=== PATIENT | male | born 1985 | race African-American/Black ===

== ENCOUNTER 2016-09-23 08:03 | Emergency (ER) | payer MEDICAID ==
[2016-09-23] MEDS ORDERED: LIDOCAINE 5% (700 MG) TRANSDERMAL ADH..PATCH TP ONE (09:56)
[2016-09-23] MEDS ORDERED: HYDROCODONE/ACETAMINOPHEN 5-325 MG 6 TAB/DSPK PO PRN (09:56)
[2016-09-23] MEDS ORDERED: KETOROLAC TROMETHAMINE 60 MG/2 ML SDV IM ONE (09:56)
[2016-09-23] MEDS ORDERED: PREDNISONE 20 MG TABLET PO ONE (10:01)
--- NOTE | 2016-09-23 10:01 | ER Document Report ---
ED General - General Chief Complaint: Low Back Pain Stated Complaint: BACK INJURY TRAVEL OUTSIDE OF THE [place] IN LAST 30 DAYS: No - HPI Patient complains to provider of: low back pain Notes: Patient was performing any lifting started having low back pain. Days later coming in for further evaluation. Patient denies any numbness tingling bowel or bladder incontinence. Denies fevers chills denies IV drug use. Patient states pain starts in his buttocks and radiates down his leg. Denies fevers chills trauma - Related Data Allergies/Adverse Reactions: No Known Allergies Allergy (Unverified 09/23/16 08:56) Past Medical History - Social History Smoking Status: Never Smoker Chew tobacco use (# tins/day): No Frequency of alcohol use: None Drug Abuse: None Family History: None Patient has suicidal ideation: No Patient has homicidal ideation: No - Past Medical History Cardiac Medical History: Reports: Hx Hypertension Renal/ Medical History: Denies: Hx Peritoneal Dialysis Past Surgical History: Reports: Hx Oral Surgery - Immunizations Hx Diphtheria, Pertussis, Tetanus Vaccination: Yes Review of Systems - Review of Systems Constitutional: No symptoms reported EENT: No symptoms reported Cardiovascular: No symptoms reported Respiratory: No symptoms reported Gastrointestinal: No symptoms reported Genitourinary: No symptoms reported Male Genitourinary: No symptoms reported Musculoskeletal: Back pain Skin: No symptoms reported Hematologic/Lymphatic: No symptoms reported Neurological/Psychological: No symptoms reported -: Yes All other systems reviewed and negative Physical Exam - Vital signs Vitals: Temp Pulse Resp BP Pulse Ox 98.3 F 80 16 152/90 H 97 09/23/16 08:17 09/23/16 08:17 09/23/16 08:17 09/23/16 08:17 09/23/16 08:17 Interpretation: Normal - General General appearance: Appears well, Alert - HEENT Head: Normocephalic, Atraumatic Eyes: Normal Pupils: PERRL - Respiratory Respiratory status: No respiratory distress Chest status: Nontender Breath sounds: Normal Chest palpation: Normal - Cardiovascular Rhythm: Regular Heart sounds: Normal auscultation Murmur: No - Abdominal Inspection: Normal Distension: No distension Bowel sounds: Normal Tenderness: Nontender Organomegaly: No organomegaly - Back Back: Normal, Nontender, Other - Patient symptoms are reproduced when standing and palpating the piriformis muscle of the right side sharp pain radiating on patient's leg - Extremities General upper extremity: Normal inspection, Nontender, Normal color, Normal ROM , Normal temperature General lower extremity: Normal inspection, Nontender, Normal color, Normal ROM , Normal temperature, Normal weight bearing. No: Peter's sign - Neurological Neuro grossly intact: Yes Cognition: Normal Orientation: AAOx4 [place] Coma Scale Eye Opening: Spontaneous [place] Coma Scale Verbal: Oriented Eric Coma Scale Motor: Obeys Commands Eric Coma Scale Total: 15 Speech: Normal Motor strength normal: LUE, RUE, LLE, RLE Sensory: Normal - Psychological Associated symptoms: Normal affect, Normal mood - Skin Skin Temperature: Warm Skin Moisture: Dry Skin Color: Normal Course - Re-evaluation Re-evalutation: 09/23/16 15:32 The patient presents with low back pain without signs of spinal cord compression , cauda equina syndrome, infection, aneurysm, or other serious etiology. The patient is neurologically intact. Given the extremely low risk of these diagnoses further testing and evaluation for these possibilities does not appear to be indicated at this time. The patient has been instructed to return if the symptoms worsen or change in any way. .. - Vital Signs Vital signs: Temp Pulse Resp BP Pulse Ox 97.7 F 74 18 146/88 H 99 09/23/16 10:31 09/23/16 10:31 09/23/16 10:31 09/23/16 10:31 09/23/16 10:31 Discharge - Discharge Clinical Impression: Back pain Qualifiers: Back pain location: low back pain Chronicity: unspecified Back pain laterality : unspecified Sciatica presence: with sciatica Sciatica laterality: sciatica laterality unspecified Qualified Code(s): M54.40 - Lumbago with sciatica, unspecified side Sciatica Qualifiers: Laterality: unspecified laterality Qualified Code(s): M54.30 - Sciatica, unspecified side Condition: Good Disposition: HOME, SELF-CARE Instructions: Ice Packs ([facility]), Low Back Pain ([facility]), Warm Packs ([facility]), Oral Narcotic Medication ([facility]), Sciatica ([facility]), Stretching Exercises for the Back ( [facility]) Additional Instructions: Take medication as prescribed. Return to ER symptoms worsen. Follow-up with your primary care physician. Prescriptions: Ibuprofen [Motrin 600 mg Tablet] 600 mg PO Q8HP PRN #30 tablet PRN Reason: Hydrocodone Bit/Acetaminophen [Hydrocodon-Acetaminophen 5-325] 1 each PO Q6 #20 tablet Prednisone [Deltasone 20 mg Tablet] 60 mg PO DAILY 5 Days Forms: Return to Work Referrals: PREMA OLSEN MD [Primary Care Provider] - Follow up as needed
[2016-09-23 10:42] VITALS: BP 146/88
== END 2016-09-23 10:42 | disposition home or self-care (01) ==
LOC: ER 08:03
DX: M54.40 Lumbago with sciatica, unspecified side (principal); M54.30 Sciatica, unspecified side; I10 Essential (primary) hypertension
CPT/HCPCS: 99283; 96372; J1885; J3490; J7512

== ENCOUNTER 2018-04-24 17:29 | Emergency (ER) | payer SELFPAY ==
[2018-04-24 17:59] VITALS: BP 152/92
[2018-04-24] MEDS ORDERED: DEXAMETHASONE SOD PHOS INJ 10 MG/1 ML VIAL IM ONE (18:11)
[2018-04-24] MEDS ORDERED: KETOROLAC TROMETHAMINE 60 MG/2 ML SDV IM ONE (18:11)
--- NOTE | 2018-04-24 18:14 | ER Document Report ---
ED Neck/Back Problem - General Chief Complaint: Back Pain Stated Complaint: BACK PAIN Time Seen by Provider: 04/24/18 17:56 Mode of Arrival: Ambulatory Information source: Patient Notes: 32-year-old male presented ED for complaint of pain to his lower back for years. He states his been hurting worse for the last couple days. He denies any trauma or any injuries to his back. He states he has had sciatica multiple times in the past. He states he does a lot of lifting at work and was doing some stretching and the pain has continued. Patient is alert and oriented respirations regular and unlabored speaking in full sentences walks with a even steady gait. TRAVEL OUTSIDE OF THE [place] IN LAST 30 DAYS: No - HPI Patient complains to provider of: Pain, Lower back Onset: Last week Onset: Chronic Timing: Still present Quality of pain: Sharp Severity: Moderate Pain Level: 3 Recent injury: No Associated symptoms: Like prior neck/back pain, Lower back pain. denies: Incontinence, Motor loss, Numbness/tingling, Radiation to arm, Radiation to chest, Radiation to leg, Sensory loss, Sweaty, Unable to urinate, Upper back pain Exacerbated by: Movement of trunk Relieved by: Nothing Similar symptoms previously: Yes Recently seen / treated by doctor: No - Related Data Allergies/Adverse Reactions: No Known Allergies Allergy (Unverified 09/23/16 08:56) Past Medical History - General Information source: Patient - Social History Smoking Status: Never Smoker Cigarette use (# per day): No Chew tobacco use (# tins/day): No Smoking Education Provided: No Frequency of alcohol use: Occasional Drug Abuse: None 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 History: None Patient has suicidal ideation: Yes Patient has homicidal ideation: Yes - Past Medical History Cardiac Medical History: Reports: Hx Hypertension Pulmonary Medical History: Reports: None EENT Medical History: Reports: None Neurological Medical History: Reports: None Endocrine Medical History: Reports: None Renal/ Medical History: Reports: None Malignancy Medical History: Reports None GI Medical History: Reports: None Musculoskeletal Medical History: Reports None Skin Medical History: Reports None Psychiatric Medical History: Reports: None Traumatic Medical History: Reports: None Infectious Medical History: Reports: None Past Surgical History: Reports: Hx Oral Surgery - Immunizations Immunizations up to date: Yes Hx Diphtheria, Pertussis, Tetanus Vaccination: Yes Review of Systems - Review of Systems Constitutional: No symptoms reported EENT: No symptoms reported Cardiovascular: No symptoms reported Respiratory: No symptoms reported Gastrointestinal: No symptoms reported Genitourinary: No symptoms reported Male Genitourinary: No symptoms reported Musculoskeletal: Back pain, Muscle pain, Muscle stiffness Skin: No symptoms reported Hematologic/Lymphatic: No symptoms reported Neurological/Psychological: No symptoms reported -: Yes All other systems reviewed and negative Physical Exam - Vital signs Vitals: Temp Pulse Resp BP Pulse Ox 98.2 F 55 L 18 157/103 H 100 04/24/18 17:53 04/24/18 17:53 04/24/18 17:53 04/24/18 17:53 04/24/18 17:53 Interpretation: Normal - General General appearance: Appears well, Alert - HEENT Head: Normocephalic, Atraumatic Eyes: Normal Pupils: PERRL - Respiratory Respiratory status: No respiratory distress Chest status: Nontender Breath sounds: Normal Chest palpation: Normal - Cardiovascular Rhythm: Regular Heart sounds: Normal auscultation Murmur: No - Abdominal Inspection: Normal Distension: No distension Bowel sounds: Normal Tenderness: Nontender Organomegaly: No organomegaly - Back Back: Normal, Tender. No: Deformity/step-off, CVA tenderness, Vertebra tenderness, Scars, Scoliosis, Wounds Notes: No signs or symptoms of cauda equina, no loss of control of bowel bladder, no loss of sensation to the legs no loss control to the lower extremities, no saddle anesthesia. - Extremities General upper extremity: Normal inspection, Nontender, Normal color, Normal ROM , Normal temperature General lower extremity: Normal inspection, Nontender, Normal color, Normal ROM , Normal temperature, Normal weight bearing. No: Peter's sign - Neurological Neuro grossly intact: Yes Cognition: Normal Orientation: AAOx4 [place] Coma Scale Eye Opening: Spontaneous Eric Coma Scale Verbal: Oriented Eric Coma Scale Motor: Obeys Commands [place] Coma Scale Total: 15 Speech: Normal Motor strength normal: LUE, RUE, LLE, RLE Sensory: Normal - Psychological Associated symptoms: Normal affect, Normal mood - Skin Skin Temperature: Warm Skin Moisture: Dry Skin Color: Normal Course - Re-evaluation Re-evalutation: 04/24/18 21:26 Patient was treated with Toradol and Decadron. Patient was given instructions on ice warm packs and stretching exercises. Patient instructed to follow-up with his primary doctor and a back specialist if he continues to have pain. - Vital Signs Vital signs: Temp Pulse Resp BP Pulse Ox 98.2 F 55 L 18 152/92 H 100 04/24/18 17:53 04/24/18 17:53 04/24/18 17:53 04/24/18 17:58 04/24/18 17:53 Discharge - Discharge Clinical Impression: Chronic low back pain Qualifiers: Back pain laterality: bilateral Sciatica presence: without sciatica Qualified Code(s): M54.5 - Low back pain Condition: Stable Disposition: HOME, SELF-CARE Additional Instructions: Chronic Back Pain Chronic back pain (pain persisting longer than three months) is a common problem. A medical evaluation can look for herniated disc, arthritis, osteoporosis, tumors, and infections. But at least half the time, there's no obvious treatable cause. Anxiety and depression tend to worsen back pain. Ibuprofen or other anti-inflammatory medicine can help. A heating pad, used for 15-20 minutes at a time, can ease pain. For this type of back pain, narcotic medicines should be avoided. Muscle relaxers are rarely helpful unless you're having spasms. Activity is important. Find an aerobic exercise program that your back can tolerate. Too much rest makes back pain worse. Specific back exercises are usually prescribed to strengthen the back and abdominal muscles. Often, a physical therapist can help. Avoid heavy lifting, working while bent over, or standing with both knees straight. Most back pain patients do better with a firm mattress. If new symptoms of a "herniated disc" (radiation of pain, numbness, or tingling down the back of the leg or weakness in the leg) occur, you should be re-examined. MUSCLE RELAXERS: Muscle relaxing medications are usually prescribed for acute muscle spasm or injury to the neck and back. They are often combined with antiinflammatory pain medication for increased relief. You may stop the muscle relaxer when the pain and stiffness have improved. Start the medication again if spasms recur. Muscle relaxers may cause drowsiness, especially with the first dose. Do not operate machinery or drive while under the effects of the medication. Most muscle relaxers last up to 24 hours. Do not combine the medication with alcohol. ICE PACKS: Apply ice packs frequently against the painful area. Many different schedules are recommended, such as "20 minutes on, 20 minutes off" or "one hour ice, two hours rest." If you need to work, you may need to go longer between ice treatments. You should plan to have the area ice packed AT LEAST one fourth of the time. The ice should be applied over the wrap, tape, or splint, or over a layer of cloth -- not directly against the skin. Some ice bags have a built-in cloth and can be put directly on the skin. WARM PACKS: After approximately two days, apply gentle heat (such as a heating pad or hot water bottle) for about 20 to 30 minutes about every two hours -- at least four times daily. Warmth and elevation will help you make a more rapid recovery , and will ease the pain considerably. Do not use HOT heat, and never apply heat for longer than 30 minutes. The continuous heat can invisibly damage skin and muscles -- even when no burn is seen on the surface. Damaged muscles can make you MORE sore. Stretching Exercises for the Back The physician has recommended that you begin stretching exercises for your back. These are often used even while the back is painful. However, you should notify the physician if the activities seem to increase your pain. PELVIC TILT: Lie flat on your back with knees bent. Tighten your stomach and buttock muscles so it flattens your lower back against the floor. Hold 10 seconds. Repeat 10 times, twice daily. KNEE RAISE: Lying on the back with knees bent, raise one knee to your chest, then the other. Hold both knees against the chest 10 seconds, then lower one knee at a time. Repeat 10 times, twice daily. PARTIAL TRUNK RAISE: Lie face down, arms at your sides. Keeping your waist on the floor, use your arms raise your chest up. Support yourself on your elbows for 30 seconds. Repeat twice daily, increasing the time to two minutes as you recover. STEROID MEDICATION: You have been given an injection of medicine of the cortisone/steroid class. This medication is used to control inflammation or allergy. It is often continued as a pill for a short period of time, until the acute process subsides. There are usually no side effects from short-term use of cortisone-like medications. Some persons feel an increased sense of well-being and are not sleepy at bedtime. Long-term use of cortisone medications is best avoided, unless required for a severe condition. If your condition does not remit, or relapses after the course of corticosteroid medication, you should consult your physician. Toradol Injection You have been given an injection of ketorolac tromethamine (Toradol). This is an excellent, safe drug for pain control. It also has potent antiinflammatory action. You should have significant pain relief within about one hour. Toradol is not addicting and is non-sedating. It does not interfere with driving or work. Call or return if you develop itching, hives, shortness of breath, or rash. FOLLOW-UP CARE: If you have been referred to a physician for follow-up care, call the physician s office for an appointment as you were instructed or within the next two days. If you experience worsening or a significant change in your symptoms, notify the physician immediately or return to the Emergency Department at any time for re-evaluation. Prescriptions: Cyclobenzaprine HCl [Flexeril 10 mg Tablet] 10 mg PO TIDP PRN #15 tab PRN Reason: Forms: Elevated Blood Pressure, Return to Work Referrals: PREMA OLSEN MD [NO LOCAL MD] - Follow up in 3-5 days
== END 2018-04-24 18:40 | disposition home or self-care (01) ==
LOC: ER 17:29
DX: G89.29 Other chronic pain (principal); M54.5 Low back pain; I10 Essential (primary) hypertension
CPT/HCPCS: 99283; 96372; J1885; J1100

== ENCOUNTER 2018-12-23 19:54 | Emergency (ER) | payer OTHER ==
[2018-12-23 22:15] VITALS: BP 147/101
[2018-12-23] MEDS ORDERED: DIPHENHYDRAMINE HCL 50 MG CAPSULE PO ONE (22:15)
[2018-12-23] MEDS ORDERED: IBUPROFEN 600 MG TABLET PO ONE (22:15)
--- NOTE | 2018-12-23 22:20 | ER Document Report ---
ED Skin Rash/Insect Bite/Abscs - General Chief Complaint: Bee Sting Stated Complaint: WASP STING, LEFT EYE SWOLLEN Time Seen by Provider: 12/23/18 21:21 Mode of Arrival: Ambulatory Information source: Patient Notes: 33-year-old male presented to ED for a wasp sting to the forehead this afternoon. He states that the swelling is now gone down to his left eyelid. He denies any pain shortness of breath difficulty swallowing or difficulty breathing. He is alert oriented respirations regular and unlabored speaking in full sentences walks with even steady gait. He is in no acute distress. He states he was just concerned because he has some swelling to the eyelid on the side that he was stung on. He states he used an alcohol pad at the time of the staying. He states he is not taking any ibuprofen or Benadryl as yet. He will be treated with both while in the emergency room. TRAVEL OUTSIDE OF THE [place] IN LAST 30 DAYS: No - HPI Patient complains to provider of: Insect sting Onset: This afternoon Onset/Duration: Gradual Quality of pain: No pain Severity: None Pain Level: Denies Skin Character: Swelling - Left eyelid due to bee sting Identify cause: Yes Exacerbated by: Denies Relieved by: Denies Similar symptoms previously: Yes Recently seen / treated by doctor: No - Related Data Allergies/Adverse Reactions: No Known Allergies Allergy (Verified 12/23/18 20:02) Past Medical History - General Information source: Patient - Social History Smoking Status: Never Smoker Chew tobacco use (# tins/day): No Frequency of alcohol use: None Drug Abuse: None Lives with: Family Family History: None Patient has suicidal ideation: No Patient has homicidal ideation: No - Past Medical History Cardiac Medical History: Reports: Hx Hypertension Pulmonary Medical History: Reports: None EENT Medical History: Reports: None Neurological Medical History: Reports: None Endocrine Medical History: Reports: None Renal/ Medical History: Reports: None Malignancy Medical History: Reports None GI Medical History: Reports: None Musculoskeletal Medical History: Reports None Skin Medical History: Reports None Psychiatric Medical History: Reports: None Traumatic Medical History: Reports: None Infectious Medical History: Reports: None Past Surgical History: Reports: Hx Oral Surgery, Other - PRK to eyes - Immunizations Immunizations up to date: Yes Hx Diphtheria, Pertussis, Tetanus Vaccination: Yes Review of Systems - Review of Systems Constitutional: No symptoms reported EENT: Other - Mild swelling to forehead and left upper eyelid eyes pain Cardiovascular: No symptoms reported Respiratory: No symptoms reported Gastrointestinal: No symptoms reported Genitourinary: No symptoms reported Male Genitourinary: No symptoms reported Musculoskeletal: No symptoms reported Skin: No symptoms reported Hematologic/Lymphatic: No symptoms reported Neurological/Psychological: No symptoms reported -: Yes All other systems reviewed and negative Physical Exam - Vital signs Vitals: Temp Pulse Resp BP Pulse Ox 97.8 F 74 15 145/106 H 100 12/23/18 20:16 12/23/18 20:16 12/23/18 20:16 12/23/18 20:16 12/23/18 20:16 Interpretation: Normal - General General appearance: Appears well, Alert - HEENT Head: Atraumatic, Other - Mild swelling to forehead and left upper eyelid from bee sting Eyes: Other - Mild swelling to left upper eyelid from bee sting Conjunctiva: Normal Cornea: Normal Pupils: PERRL Ears: Normal External canal: Normal Tympanic membrane: Normal Sinus: Normal Nasal: Normal Mouth/Lips: Normal Mucous membranes: Normal Pharynx: Normal Neck: Normal - Respiratory Respiratory status: No respiratory distress Chest status: Nontender Breath sounds: Normal Chest palpation: Normal - Cardiovascular Rhythm: Regular Heart sounds: Normal auscultation Murmur: No - Abdominal Inspection: Normal Distension: No distension Bowel sounds: Normal Tenderness: Nontender Organomegaly: No organomegaly - Back Back: Normal, Nontender - Extremities General upper extremity: Normal inspection, Nontender, Normal color, Normal ROM, Normal temperature General lower extremity: Normal inspection, Nontender, Normal color, Normal ROM, Normal temperature, Normal weight bearing. No: Peter's sign - Neurological Neuro grossly intact: Yes Cognition: Normal Orientation: AAOx4 Eric Coma Scale Eye Opening: Spontaneous [place] Coma Scale Verbal: Oriented Eric Coma Scale Motor: Obeys Commands [place] Coma Scale Total: 15 Speech: Normal Motor strength normal: LUE, RUE, LLE, RLE Sensory: Normal - Psychological Associated symptoms: Normal affect, Normal mood - Skin Skin Temperature: Warm Skin Moisture: Dry Skin Color: Normal Course - Re-evaluation Re-evalutation: 12/23/18 22:22 Patient was treated with ibuprofen and Benadryl in the emergency room. Patient was instructed that he needs to follow-up with [facility] for his high blood pressure. was at bedside stated she would ensure that he follows up with his primary care provider for his blood pressure. Patient states he will use ibuprofen and Benadryl at home after he gets a dose in the emergency room. is going to drive home. - Vital Signs Vital signs: Temp Pulse Resp BP Pulse Ox 97.8 F 69 18 147/101 H 98 12/23/18 22:13 12/23/18 22:13 12/23/18 22:13 12/23/18 22:13 12/23/18 22:13 Discharge - Discharge Clinical Impression: Local reaction to bee sting Qualifiers: Encounter type: initial encounter Injury intent: accidental or unintentional Qualified Code(s): T63.441A - Toxic effect of venom of bees, accidental (unintentional), initial encounter Condition: Stable Disposition: HOME, SELF-CARE Additional Instructions: Insect Sting You've been stung by an insect. The venom can cause pain, redness, and swelling. Right after the sting, we sometimes use adrenaline to reduce the reaction to the venom. This also stops any allergic reaction. You should apply cold compresses, rest and elevate the affected part, and take antihistamines. A more severe, itchy red swelling sometimes develops the next day. This is a local allergic reaction to the venom. This local allergy isn't dangerous. We treat it with cortisone-type medicine and antihistamines. Sometimes we use antibiotics if we're worried about infection. If you develop a fever, chills, a red streak, or swollen glands in the area of the bite, infection may be starting. Return at once. Insect stings from the bee and hornet family may cause a severe allergic reaction. Symptoms include hoarseness, shortness of breath, general redness of the skin, general itching, or lightheadedness. If any of these symptoms occur, you'll be treated with adrenalin and cortisone-like steroids. You should carry an "Anaphylaxis Kit" with you in the summer months so you can administer these medications to yourself before getting emergency medical care. Ibuprofen Ibuprofen is an excellent, safe drug for pain control. In addition, it has potent antiinflammatory effects which are beneficial, especially in the treatment of injuries, arthritis, or tendonitis. It's best to take ibuprofen with food. Persons with ulcer disease or allergy to aspirin should notify their physician of this before taking ibuprofen. Take the medication exactly as prescribed. Don't take additional doses unless instructed to do so by your doctor. If you develop wheezing, shortness of breath, hives, faintness, stomach pain, vomiting, or dark black stools, return for re-evaluation at once. Ice Packs Apply ice packs frequently against the painful area. Many different schedules are recommended, such as "20 minutes on, 20 minutes off" or "one hour ice, two hours rest." If you need to work, you may need to go longer between ice treatments. You should plan to have the area ice packed AT LEAST one fourth of the time. The ice should be applied over the wrap, tape, or splint, or over a layer of cloth -- not directly against the skin. Some ice bags have a built-in cloth and can be put directly on the skin. Diphenhydramine The use of diphenhydramine (Benadryl) has been recommended to control a llergic symptoms. The 25 mg strength is available over- the-counter, as well as the elixir. This antihistamine is used for many symptoms. It's useful for itching, watering eyes and nose, allergic swelling, hives, and insect stings. The medication can be repeated four times daily. Age Elixir (12.5 mg/tsp) 25 mg pill 1 yr 1/4 tsp 2-3 yr 1/2 tsp 4-8 yr 1 tsp 9-14 yr 2 tsp one tab adult 1-2 tabs Antihistamines may cause drowsiness, especially with the first dose. Do not operate machinery or drive while under the effects of the medication. Do not combine the medication with alcohol, or with any other medication without talking to your doctor. You have a elevated blood pressure. You have a history of elevated blood pressure. You need to see your [facility] provider and get put on medications. Your blood pressure is high enough that it should be treated. Please follow-up with your primary care and get treatment for this blood pressure. FOLLOW-UP CARE: If you have been referred to a physician for follow-up care, call the physicians office for an appointment as you were instructed or within the next two days. If you experience worsening or a significant change in your symptoms, notify the physician immediately or return to the Emergency Department at any time for re-evaluation. Forms: Elevated Blood Pressure, Return to Work
== END 2018-12-23 22:33 | disposition home or self-care (01) ==
LOC: ER 19:54
DX: T63.441A Toxic effect of venom of bees, accidental (unintentional), initial encounter (principal); I10 Essential (primary) hypertension
CPT/HCPCS: 99282